=== PATIENT | female | born 1995 | race Caucasian/White ===

== ENCOUNTER 2022-04-23 18:53 | Observation (INO) ==
[2022-04-24] MEDS ORDERED: Naloxone 0.4 MG/ML INJ IVP PRN (02:04)
[2022-04-24] MEDS ORDERED: Ondansetron 4 MG/2 ML VIAL IVP PRN (02:04)
[2022-04-24 02:47] LABS: Basophils # 0.1 K/mcL (0.0-0.2); Basophils % 0.6 %; Eosinophils % 0.1 %; Hematocrit 41.2 % (35.3-44.9); Hemoglobin 13.8 g/dL (11.5-15.4); Immature Granulocytes % 0.4 % (0-4); Lymphocytes # 0.9 K/mcL (0.6-4.6); Lymphocytes % 8.5 %; Mean Corpuscular HGB Conc 33.5 g/dL (31.6-35.5); Mean Corpuscular Hemoglobin 29.3 pg (28.0-33.3); Mean Corpuscular Volume 87.5 fL (83.0-100.0); Mean Platelet Volume 8.6 fL (9.4-12.4); Monocytes # 0.7 K/mcL (0.0-1.3); Monocytes % 6.4 %; Neutrophils # 8.6 K/mcL (1.6-8.9); Platelet Count 383 K/mcL (140-400); Red Blood Count 4.71 M/mcL (3.82-4.97); Red Cell Distribution Width 12.9 % (11.5-14.5); White Blood Count 10.2 K/mcL (4.3-11.1)
[2022-04-24] MEDS ORDERED: *HR* Labetalol 20 MG/4 ML SYRINGE IVP ONE ×3 (02:57→16:55)
[2022-04-24 03:01] LABS: INR 1.1; Prothrombin Time 12.6 Seconds (9.4-12.1)
[2022-04-24 03:03] LABS: Acetaminophen < 10 mcg/mL (10-20); Activated Partial Thrombo Time 28.7 Seconds (26.0-36.0); Ethanol < 10 mg/dL (Less than 10); Salicylate < 2.5 mg/dL (15.0-30.0)
[2022-04-24] MEDS: 0.9 % Sodium Chloride 1,000 ML IVC SCH ×2 (03:05→11:14)
[2022-04-24 03:06] LABS: Alanine Aminotransferase 19 Units/L (7-52); Albumin 4.3 g/dL (3.5-5.7); Albumin/Globulin Ratio 1.7 (1.1-2.2); Alkaline Phosphatase 113 Units/L (34-104); Aspartate Amino Transferase 39 Units/L (13-39); BUN/Creatinine Ratio 10 (6-26); Bilirubin,Total 0.3 mg/dL (0.3-1.0); Blood Urea Nitrogen 6 mg/dL (6-20); Calcium 9.3 mg/dL (8.6-10.3); Carbon Dioxide 22 mEq/L (23-29); Chloride 102 mEq/L (98-107); Creatine Kinase 1025 Units/L (30-223); Globulin 2.6 g/dL (2.4-3.5); Glucose 104 mg/dL (70-105); Magnesium 2.1 mg/dL (1.6-2.6); Osmolality,Calculated 274 (280-300); Phosphorous 3.4 mg/dL (2.7-4.5); Potassium 3.7 mEq/L (3.5-5.1); Sodium 133 mEq/L (136-145); Total Protein 6.9 g/dL (6.4-8.9)
[2022-04-24 03:19] LABS: Thyroid Stimulating Hormone 1.134 mcIU/mL (0.340-5.600)
[2022-04-24] MEDS: *HR* LORazepam 2 MG/ML VIAL IVP PRN ×3 (08:17→20:15)
[2022-04-24] MEDS: diazePAM 5 MG TABLET PO SCH ×2 (15:43→20:17)
[2022-04-24] MEDS ORDERED: Chloraseptic Spray 177 ML BOTTLE MM PRN (16:49)
[2022-04-24] MEDS: RisperiDONE-M 1 MG TAB.RAPDIS PO SCH (17:26)
[2022-04-24] MEDS: OXcarbazepine 150 MG TABLET PO SCH (20:17)
[2022-04-24] MEDS: traZODone 50 MG TABLET PO SCH (20:18)
[2022-04-24] MEDS ORDERED: *HR* Metoprolol 5 MG/5 ML VIAL IVP PRN (20:42)
[2022-04-25] MEDS: Acetaminophen 325 MG TABLET PO PRN ×2 (00:38→20:38)
[2022-04-25 04:00] VITALS: O2SAT 96
[2022-04-25 06:10] LABS: Bacteria,Urine Few per hpf (None-Few); Bilirubin,Urine Negative (Negative); Blood,Urine Negative (Negative); Budding Yeast,Urine Few per hpf (None Seen); Clarity,Urine Turbid (Clear); Color,Urine Light-Yellow (Yellow); Glucose,Urine (UA) Normal (Normal); Hyaline Casts,Urine Few per lpf (None Seen); Ketones,Urine Negative (Negative); Leukocyte Esterase,Urine Negative (Negative); Mucus,Urine Few per lpf (None-Few); Nitrite,Urine Negative (Negative); PH,Urine 6.5 pH Units (5.0-8.0); Protein,Urine Trace mg/dL (Neg-Trace); RBC,Urine 0-3 per hpf (0-3); Specific Gravity,Urine 1.013 (1.010-1.025); Squamous Epithelial Cell,Urine Few per hpf (None-Few); Urobilinogen,Urine Normal (Normal)
[2022-04-25] MEDS: OXcarbazepine 150 MG TABLET PO SCH ×2 (09:31→20:38)
[2022-04-25] MEDS: RisperiDONE-M 1 MG TAB.RAPDIS PO SCH ×2 (09:32→14:23)
[2022-04-25] MEDS: Loratadine 10 MG TABLET PO SCH (09:32)
[2022-04-25] MEDS: diazePAM 5 MG TABLET PO SCH ×3 (09:32→20:38)
[2022-04-25] MEDS: polyethylene glycoL 3350 17 GM POWD.PACK PO SCH (09:32)
[2022-04-25] MEDS: cephALEXin 500 MG CAPSULE PO SCH ×2 (14:23→20:38)
[2022-04-25 20:33] VITALS: BP 129/86; PULSE 91
[2022-04-25] MEDS: traZODone 50 MG TABLET PO SCH (20:38)
[2022-04-26] MEDS: RisperiDONE-M 1 MG TAB.RAPDIS PO SCH (08:13)
[2022-04-26] MEDS: Loratadine 10 MG TABLET PO SCH (08:13)
[2022-04-26] MEDS: OXcarbazepine 150 MG TABLET PO SCH (08:13)
[2022-04-26] MEDS: cephALEXin 500 MG CAPSULE PO SCH (08:13)
[2022-04-26] MEDS: diazePAM 5 MG TABLET PO SCH (08:13)
[2022-04-26] MEDS: polyethylene glycoL 3350 17 GM POWD.PACK PO SCH (08:14)
[2022-04-26] MEDS ORDERED: Flu Vac QV 22-23 (6MOS UP)/PF 0.5 ML SYRINGE IM ONE (09:00)
[2022-04-26 09:28] VITALS: TEMP 97.8
[2022-04-26] MEDS ORDERED: 0.9 % Sodium Chloride 1,000 ML IVC SCH (09:30)
[2022-04-26 09:42] LABS: Adenovirus Not Detected (Not Detect); Bordetella Pertussis Not Detected (Not Detect); Chlamydophila pneumoniae Not Detected (Not Detect); Coronavirus 229E Not Detected (Not Detect); Coronavirus HKU1 Not Detected (Not Detect); Coronavirus NL63 Not Detected (Not Detect); Coronavirus OC43 Not Detected (Not Detect); Human Metapneumovirus Not Detected (Not Detect); Human Rhinovirus/Enterovirus DETECTED (Not Detect); Influenza A Subtype 2009 H1 Not Detected (Not Detect); Influenza B Not Detected (Not Detect); Mycoplasma pneumoniae Not Detected (Not Detect); Parainfluenza Virus 1 Not Detected (Not Detect); Parainfluenza Virus 2 Not Detected (Not Detect); Parainfluenza Virus 3 Not Detected (Not Detect); Parainfluenza Virus 4 Not Detected (Not Detect); Respiratory Syncytial Virus Not Detected (Not Detect); SARS-CoV-2 Not Detected (Not Detect)
== END 2022-04-26 10:58 | disposition home or self-care (01) ==
LOC: 2NNU → SUATTDRO 04-24 01:29
PROVIDERS: ADMIT Internal Medicine; ATTEND Student in an Organized Health Care Education/Training Program